=== PATIENT | male | born 1960 | race Caucasian/White ===

== ENCOUNTER 2017-12-23 15:33 | Emergency (ER) ==
[2017-12-23 15:39] VITALS: BP 116/78; TEMP 98.8; BMI 37.3
[2017-12-23] MEDS ORDERED: LIDOCAINE HCL 1% SDV SUBCUT STA (16:01)
--- NOTE | 2017-12-23 16:28 | ED.PDOC ---
General ED Provider: Dr. CHANDRA QUINN Chief Complaint: Fall Stated Complaint: fall/laceration Time Seen by Physician: 15:37 (seen with jovi ) Mode of Arrival: Walk-In Information Source: Patient Exam Limitations: No limitations Primary Care Provider: LUCILA LIVINGSTON Nursing and Triage Documentation Reviewed and Agree: Yes Does patient meet sepsis criteria?: Yes If yes, has appropriate treatment been initiated?: No (no loc fall was not syncope related ) System Inflammatory Response Syndrome: Not Applicable Sepsis Protocol: For patient's 13 years and over: Temp is 96.8 and below OR 101 and greater Pulse >90 BPM Resp >20/minute Acutely Altered Mental Status Are patient's symptoms suggestive of a new infection, such as: -Pneumonia -Skin, Soft Tissue -Endocarditis -UTI -Bone, Joint Infection -Implantable Device -Acute Abdominal Infection -Wound Infection -Meningitis -Blood Stream Catheter Infection -Unknown Skin Complaint Exam - Laceration/Head/Facial Complaint/Exam Location of Injury: Face Mechanism of Injury: Laceration Onset/Duration: today Symptoms Are: Still present Initial Severity: Mild Current Severity: None Aggravating: None Alleviating: None Associated Signs and Symptoms: Denies: Fever, Chills, Erythema, Numbness, Tingling Related History: Reports: Anticoagulant use Differential Diagnoses: Laceration Review of Systems - Review Of Systems Constitutional: Reports: No symptoms Eyes: Reports: No symptoms Ears, Nose, Mouth, Throat: Reports: No symptoms Respiratory: Reports: No symptoms Cardiac: Reports: No symptoms GI: Reports: No symptoms : Reports: No symptoms Musculoskeletal: Reports: No symptoms Skin: Reports: No symptoms Neurological: Reports: No symptoms Endocrine: Reports: No symptoms Hematologic/Lymphatic: Reports: No symptoms All Other Systems: Reviewed and Negative Past Medical History - Past Medical History Previously Healthy: Yes Endocrine: Reports: None Cardiovascular: Reports: None Respiratory: Reports: None Hematological: Reports: None Gastrointestinal: Reports: None Genitourinary: Reports: None Neuro/Psych: Reports: None Musculoskeletal: Reports: None Cancer: Reports: None - Surgical History General Surgical History: Reports: None - Family History Family History: Reports: None - Social History Smoking Status: Never smoker Hx Substance Use: No Alcohol Screening: None - Immunizations Tetanus Shot up to Date: No Physical Exam - Physical Exam Appearance: Well-appearing, No pain distress, Well-nourished Eyes: NOEL, EOMI, Conjunctiva clear ENT: Ears normal, Nose normal, Oropharynx normal Respiratory: Airway patent, Breath sounds clear, Breath sounds equal, Respirations nonlabored Cardiovascular: RRR, Pulses normal, No rub, No murmur GI/: Soft, Nontender, No masses, Bowel sounds normal, No Organomegaly Musculoskeletal: Normal strength, ROM intact, No edema, No calf tenderness Skin: Warm, Dry, Normal color Neurological: Sensation intact, Motor intact, Reflexes intact, Cranial nerves intact, Alert, Oriented Psychiatric: Affect appropriate, Mood appropriate Procedures - Laceration/Wound Repair No standard instances Wound Description: Linear Wound Length (cm): 1cm Wound Width: 2mm Wound Depth: 2mm Wound Explored: Clean Wound Irrigated: No Wound Prep: Joselinicledesi Anesthesia: Lidocaine (1ml plain) Undermining: Minimal Wound Margins: Revised Wound Repaired With: Sutures Suture Size and Type: 3 Number of Sutures: 4 Critical Care Note - Critical Care Note Total Time (mins): 0 Course - Course Orders, Labs, Meds: Orders Category Date Time Status Lidocaine HCl/Pf [Lidocaine HCl 1% Sdv] MEDS 12/23/17 16:01 Discontinued 5 ml SUBCUT ONCE STA Medications Discontinued Medications Generic Name Dose Route Start Last Admin Trade Name Freq PRN Reason Stop Dose Admin Lidocaine HCl 5 ml 12/23/17 16:01 12/23/17 16:27 Lidocaine Hcl 1% Sdv SUBCUT 12/23/17 16:02 5 ml ONCE STA Administration Vital Signs: Temp Pulse Resp BP Pulse Ox 12/23/17 15:34 98.8 F 103 H 18 116/78 95 Departure - Departure Time of Disposition: 16:32 Disposition: HOME SELF-CARE Discharge Problem: Laceration Instructions: Laceration (ED) Condition: Good Pt referred to PMD for follow-up: Yes IPMP verified?: No Additional Instructions: Please call your Family Physician as soon as possible to schedule a follow-up appointment. Allergies/Adverse Reactions: Allergies No Known Allergies Allergy (Unverified 12/23/17 15:39) Home Medications: Ambulatory Orders Atenolol 50 mg PO DAILY 11/29/17 Fenofibric Acid 105 mg PO DAILY 11/29/17 Losartan Potassium 50 mg PO DAILY 11/29/17 Metformin HCl 1,000 mg PO DAILY 11/29/17 Pravastatin Sodium 40 mg PO DAILY 11/29/17
[2017-12-23] MEDS ORDERED: TENIVAC IM ONE (16:36)
== END 2017-12-23 16:45 | disposition home or self-care (01) ==
LOC: ED 15:33
DX: S01.81XA Laceration without foreign body of other part of head, initial encounter (principal); W19.XXXA Unspecified fall, initial encounter
CPT/HCPCS: 90471; 90714; 96372; 99283

== ENCOUNTER 2018-07-10 07:18 | Day surgery (SDC) ==
[2018-07-10] MEDS ORDERED: DIPRIVAN 20 ML VIAL IVP ONE (08:20)
[2018-07-10] MEDS ORDERED: VERSED ONE (08:20)
[2018-07-10 15:29] VITALS: BP 132/45
--- NOTE | 2018-07-11 08:15 | OP ---
PROCEDURE: COLONOSCOPY TO THE CECUM WITH COLD SNARE POLYPECTOMY. ENDOSCOPIST: Erik SIMEON M.D. INDICATION: HISTORY OF POLYPS INSTRUMENT: PCEpicForce-190. MEDICATION: PER ANESTHESIA. PROCEDURE: The patient was positioned for colonoscopy. The digital rectal exam was negative. The colonoscope was inserted through the anus and advanced to the cecum. The cecum was identified using the ileocecal valve and the appendiceal orifice as landmarks. The scope was slowly withdrawn through an adequately prepped colon. [place] Bowel Prep Score 2+2+2=6. A small polyp in the cecal pit removed using cold snare polypectomy. Diverticulosis noted in the left colon. Retroflex exam was otherwise normal with the exception of hemorrhoids. He tolerated the procedure without immediate complication. Withdraw time 14 minutes and 17 seconds. PLAN: 1. Review pathology 2. Anticipate repeat colonoscopy in 5 years. CC: Dr. Lavelle WHITE
== END 2018-07-10 09:30 | disposition home or self-care (01) ==
LOC: SURG 07:18
PROVIDERS: ATTEND Internal Medicine Gastroenterology
DX: Z86.010 Personal history of colon polyps (principal); D12.0 Benign neoplasm of cecum; K57.90 Diverticulosis of intestine, part unspecified, without perforation or abscess without bleeding

== ENCOUNTER 2018-10-02 05:46 | Outpatient (CLI) | END 2018-10-02 05:47 | disposition home or self-care (01) | LOC: LAB 05:46 | PROVIDERS: ATTEND Family Medicine | DX: E78.5 Hyperlipidemia, unspecified (principal); I10 Essential (primary) hypertension; E11.9 Type 2 diabetes mellitus without complications; I48.91 Unspecified atrial fibrillation | CPT/HCPCS: 36415; 80053; 80061; 82043; 83036; 84443; 85025 ==